=== PATIENT | male | born 1965 | race Caucasian/White ===

== ENCOUNTER 2016-10-18 01:55 | Emergency (ER) | payer MEDICARE | END 2016-10-18 04:41 | disposition home or self-care (01) | LOC: ER1 01:55 | DX: S83.005A Unspecified dislocation of left patella, initial encounter (principal); I10 Essential (primary) hypertension; I25.2 Old myocardial infarction; Z95.5 Presence of coronary angioplasty implant and graft; F17.200 Nicotine dependence, unspecified, uncomplicated; X50.1XXA Overexertion from prolonged static or awkward postures, initial encounter; Y92.009 Unspecified place in unspecified non-institutional (private) residence as the place of occurrence of the external cause | CPT/HCPCS: 99283 ==

== ENCOUNTER → 2020-12-06 | Outpatient (CLI) | payer OTHER ==
[~2020-12-06] MED LIST: ALDACTONE100 MG PO; BRILINTA 90 MG90 MG PO; CLOPIDOGREL75 MG PO; CRESTOR20 MG PO; DELSYM30 MG/5 ML PO; ECOTRIN81 MG PO; FLONASE 0.05% N16 GM; IMDUR ER TAB 3030 MG PO; LISINOPRIL5 MG PO; LOPRESSOR 25 MG25 MG PO; NITROSTAT0.4 MG SL; PRINIVIL5 MG PO
== END ==
LOC: RAD 11:56
DX: M25.512 Pain in left shoulder (principal)
CPT/HCPCS: 73030

== ENCOUNTER 2020-12-30 07:49 | Emergency (ER) | payer OTHER ==
[~2020-12-30 07:49] MED LIST changes: -DELSYM30 MG/5 ML PO; -FLONASE 0.05% N16 GM
[2020-12-30] MEDS ORDERED: FLONASE 0.05% N16 GM (11:58)
[2020-12-30] MEDS ORDERED: DELSYM30 MG/5 ML PO (11:58)
== END 2020-12-30 12:02 | disposition home or self-care (01) ==
LOC: ER1 07:49
DX: U07.1 COVID-19 (principal); F17.210 Nicotine dependence, cigarettes, uncomplicated; I11.9 Hypertensive heart disease without heart failure; E78.5 Hyperlipidemia, unspecified; Z88.6 Allergy status to analgesic agent
CPT/HCPCS: 99283; U0002